=== PATIENT | male | born 2000 | race Caucasian/White ===

== ENCOUNTER 2023-06-24 21:16 | Emergency (ER) | payer MEDICAID, OTHER ==
[~2023-06-24] VITALS: Ht 167.6 cm; Wt 91.0 kg
[2023-06-24 21:48] VITALS: BP 115/67; PULSE 71; RESP 67; TEMP 97.8; O2SAT 98
[2023-06-24] MEDS ORDERED: ERYT1OIN6 EACHEYE (23:43)
[2023-06-24] MEDS ORDERED: ERYTHROMYCIN BASE 0.5% OPHTH OINT 3.5GM LEFTEYE ONE (23:45)
== END 2023-06-25 00:53 | disposition home or self-care (01) ==
LOC: ER 21:16
DX: H01.006 Unspecified blepharitis left eye, unspecified eyelid (principal); F19.90 Other psychoactive substance use, unspecified, uncomplicated
CPT/HCPCS: 99283